=== PATIENT | male | born 1990 | race Caucasian/White ===

== ENCOUNTER 2019-08-29 09:18 | Emergency (ER) | payer BC, SELFPAY ==
[2019-08-29 09:33] VITALS: BP 135/78; PULSE 104; RESP 22; TEMP 36.2; O2SAT 98
--- NOTE | 2019-08-29 09:42 | ED.URI ---
HPI - URI/Sore Throat General Chief Complaint: Upper Respiratory Infection Stated Complaint: Poss Strep Time Seen by Provider: 08/29/19 09:45 Source: patient and RN notes reviewed Mode of arrival: ambulatory Limitations: no limitations History of Present Illness HPI Narrative: 29-year-old male who presents to [facility] with complaints of sore throat, has felt feverish with chills and sweats for the past 2 days. Patient states past history of strep throat, has bee taking Tylenol for his pain and temperature. Patient denies any ear pain, nausea or vomiting, no headache or cough. Lungs clear to auscultation, respiration even and non labored, with SAo2 98% on room air. MD elicited complaint: fever (felt feverish with chills and sweats) and sore throat Pertinent past history: other (Strep pharyngitis) Onset (ago): day(s) (2) Consistency: constant Severity: moderate Pain scale (0-10): 4 Description of mucous: clear Able to tolerate fluids by mouth: Yes Exacerbating factors: swallowing Relieving factors: nothing Associated symptoms: fever, chills, diaphoresis and sore throat Treatments prior to arrival: acetaminophen Related Data Allergies Allergy/AdvReac Type Severity Reaction Status Date / Time No Known Allergies Allergy Verified 08/29/19 09:50 Review of Systems Review of Systems: Narrative: CONSTITUTIONAL: positive fever, chills, or sweats. EYES: Denies visual changes, redness, or discharge. ENT: Denies rhinorrhea, congestion,positive sore throat, no otalgia. CARDIOVASCULAR: Denies chest pain, palpitations, or edema. RESPIRATORY: Denies cough or dyspnea. GASTROINTESTINAL: Denies abdominal pain, nausea, vomiting, or diarrhea. GENITOURINARY: Denies dysuria or hematuria. SKIN: Denies rash or itching. MUSCULOSKELETAL: Denies back pain, joint pain, or myalgia. NEUROLOGIC: Denies headache, numbness, or weakness. PSYCHIATRIC: Denies anxiety or depression. All systems reviewed & are unremarkable except as noted in HPI and below PMFSH Past Medical History Medical History (Updated 08/29/19 @ 10:22 by Irina Gregorio NP) Strep throat Social History Social History (Updated 08/29/19 @ 10:23 by Irina Gregorio NP) Smoking packs per day: 1 Smoking cigarettes per day: 20.0 Years smoked: 11 Smoking pack-years: 11.00 Smoking status: Current every day smoker Tobacco type: cigarettes Living arrangements: with family Occupation/Education: occupation Gender identity (if verbalized by the patient): Male Comments At time of signature, agree with nursing past medical, surgical, social and family history. There is no relevant family history pertinent to the presenting complaint Exam Narrative: Exam Narrative: GENERAL: Well-appearing, well-nourished, and in no acute distress. HEAD: Normocephalic, atraumatic. EYES: PERRLA and EOMI. ENT: Nares clear, no rhinorrhea or epistaxis. Mucous membranes moist.TM's normal with good light reflex, throat red swollen with white pus pockets noted on left tonsil with tonsils red. NECK: Supple lymphadenopathy. CHEST: Clear to auscultation. No respiratory distress.SAO2 98% HEART: Regular rate and rhythm. No murmur heard. Normal peripheral pulses. ABDOMEN: Soft, nontender, nondistended, normal active bowel sounds. EXTREMITIES: Normal range of motion. No edema. SKIN: Warm, dry, no rash. NEURO: No focal deficits. Alert and oriented x3. Course Vital Signs Vital signs: Vital Signs Temperature 36.2 C L 08/29/19 09:33 Pulse Rate 104 H 08/29/19 09:33 Respiratory Rate 22 H 08/29/19 09:33 Blood Pressure 135/78 08/29/19 09:33 Pulse Oximetry 98 08/29/19 09:33 Temperature 36.2 C L 08/29/19 09:33 Pulse Rate 104 H 08/29/19 09:33 Respiratory Rate 22 H 08/29/19 09:33 Blood Pressure 135/78 08/29/19 09:33 Pulse Oximetry 98 08/29/19 09:33 MDM - URI/Sore Throat Differential Diagnosis Differential diagnosis: Likely upper respiratory infection, sinusitis, viral in
== END 2019-08-29 10:06 | disposition home or self-care (01) ==
PROVIDERS: Emergency Provider Registered Nurse; PCP Internal Medicine
DX: J02.0 Streptococcal pharyngitis (principal); F17.210 Nicotine dependence, cigarettes, uncomplicated
CPT/HCPCS: 87880; 99213; G0463

== ENCOUNTER 2022-08-01 16:55 | Emergency (ER) | payer BC, SELFPAY ==
[2022-08-01 17:02] VITALS: BP 134/78; PULSE 100; RESP 16; TEMP 37.3; O2SAT 95
--- NOTE | 2022-08-01 17:19 | ED.URI ---
HPI - URI/Sore Throat General Chief Complaint: Upper Respiratory Infection Stated Complaint: cold flu Time Seen by Provider: 08/01/22 17:19 Source: patient and RN notes reviewed Mode of arrival: ambulatory Limitations: no limitations History of Present Illness HPI Narrative: 32-year-old male presented for complaint of a lung infection. onset yesterday. He endorses headache, body aches, sinus pressure/congestion, cough. denies shortness of breath, wheezing, nausea, vomiting, diarrhea. He is taking DayQuil and ibuprofen for symptoms. He denies sick contacts. smokes 1/2PPD. MD elicited complaint: cough Related Data Allergies Allergy/AdvReac Type Severity Reaction Status Date / Time No Known Allergies Allergy Verified 08/29/19 09:50 Review of Systems Review of Systems: Per [facility] Past Medical History Medical History Strep throat Social History Social History Smoking packs per day: 1 Smoking cigarettes per day: 20.0 Years smoked: 11 Smoking pack-years: 11.00 Smoking status: Current every day smoker Tobacco type: cigarettes Gender identity (if verbalized by the patient): Male Exam Narrative: GENERAL: Ill-appearing, nontoxic, appears older than stated age. EYES: PERRLA, conjunctivae clear ENT: Mucous membranes moist. Right TM pearly macias with dull light reflex; left TM erythematous no tragal tenderness. Oropharynx without lesions or exudate, no drooling, no hoarseness, no trismus, uvula midline. CHEST: Clear to auscultation, breath sounds equal. No wheezing, rhonchi, rales, or stridor. No respiratory distress, speaks in full sentences. HEART: Regular rate and rhythm. SKIN: Warm, dry, no rash. NEURO: Alert and oriented x3. PSYCH: Normal mood and affect Course Course Emergency Course: Patient is aware of diagnosis, understands and agrees to treatment plan. Anticipatory guidance given. Patient agrees to follow-up as directed and is aware of reasons to seek care at the emergency department. Portions of this record may have been created with voice recognition software Level of Care: Express Care Visit Vital Signs Vital signs: Vital Signs Temperature 99.2 F 08/01/22 17:02 Pulse Rate 100 08/01/22 17:02 Respiratory Rate 16 08/01/22 17:02 Blood Pressure 134/78 08/01/22 17:02 Pulse Oximetry 95 08/01/22 17:02 Oxygen Delivery Room Air 08/01/22 17:02 Temperature 99.2 F 08/01/22 17:02 Pulse Rate 100 08/01/22 17:02 Respiratory Rate 16 08/01/22 17:02 Blood Pressure 134/78 08/01/22 17:02 Pulse Oximetry 95 08/01/22 17:02 Oxygen Delivery Room Air 08/01/22 17:02 reviewed MDM - URI/Sore Throat MDM Narrative Medical decision making narrative: result of COVID and flu test reviewed with patient. Advised supportive measures and signs/symptoms to go to the ER. Pt is appropriate for outpt treatment and f/u. Differential Diagnosis Differential diagnosis: Likely upper respiratory infection, sinusitis and viral infection Lab Data Labs: Influenza A Screen Positive Reference Range: Negative Influenza B Screen Negative Reference Range: Negative Discharge Plan Discharge Clinical Impression: Influenza Patient Disposition: Home, Self-Care Condition: Stable Instructions: Influenza (ED) Additional Instructions: Influenza positive You should avoid crowds until you are fever free for 24 hours without the use of fever reducing medications, or the symptoms are improved Rest. Drink plenty of fluids. Tylenol 1000mg every 8 hours as needed for pain/fever Recommend Flonase spray and Zyrtec (or Claritin/Lisa) for sinus pressure/congestion over the counter Cough syrup may cause drowsiness; avoid driving or
== END 2022-08-01 17:52 | disposition home or self-care (01) ==
PROVIDERS: Emergency Provider Nurse Practitioner Family; PCP Internal Medicine
DX: J10.1 Influenza due to other identified influenza virus with other respiratory manifestations (principal); Z20.822 Contact with and (suspected) exposure to COVID-19; F17.210 Nicotine dependence, cigarettes, uncomplicated
CPT/HCPCS: 87426; 87804; 99213; C9803; G0463